=== PATIENT | male | born 1970 | race Caucasian/White ===

== ENCOUNTER 2016-11-15 13:14 | Emergency (ER) | payer SELFPAY ==
[2016-11-15 13:14] VITALS: BMI 35.4
[2016-11-15 13:23] VITALS: BP 137/88; PULSE 100; RESP 16; TEMP 98.4; O2SAT 98
[2016-11-15] MEDS ORDERED: Oxycodone/Acetaminophen 5/325 mg Tab PO STA (13:49)
--- NOTE | 2016-11-15 13:49 | C.PDOC ---
History Of Present Illness 46 yr old male presents to the ER s/p punching a desk and now complains of pain and swelling to the right hand. Patient reports he is right hand dominant. Denies neck pain, back pain, shoulder pain, weakness or numbness. 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) Current Symptoms Are (Timing): Still Present Past Medical History Reviewed: Historical Data, Nursing Documentation, Vital Signs Vital Signs: Last Vital Signs Temp 98.4 F 11/15/16 13:22 Pulse 100 H 11/15/16 13:22 Resp 16 11/15/16 13:22 BP 137/88 11/15/16 13:22 Pulse Ox 98 11/15/16 14:37 - Medical History PMH: Back Problems, Hepatitis (C) Surgical History: Back Surgery (spinal surgery) - [facility] Procedures DETOXIFICATION SERVICES FOR SUBSTANCE ABUSE TREATMENT (07/21/16) DRUG DETOXIFICATION (10/11/14) GROUP HYDROGENATION STILL OPERATOR FOR SUBSTANCE ABUSE TREATMENT, PSYCHOEDUCATION (07/21/16) GROUP HYDROGENATION STILL OPERATOR FOR SUBSTANCE ABUSE, COGNITIVE BEHAVIORAL (07/21/16) INDIV HYDROGENATION STILL OPERATOR FOR SUBSTANCE ABUSE TREATMENT, PSYCHOEDUCATION (07/21/16) INDIV HYDROGENATION STILL OPERATOR FOR SUBSTANCE ABUSE, COGNITIVE BEHAVIORAL (07/21/16) Family History: States: No Known Family Hx - Social History Hx Tobacco Use: No Hx Alcohol Use: No Hx Substance Use: Yes (heroin IV) - Immunization History Hx Tetanus Toxoid Vaccination: No Hx Influenza Vaccination: No Hx Pneumococcal Vaccination: No Review Of Systems Except As Marked, All Systems Reviewed And Found Negative. Musculoskeletal: Positive for: Hand Pain (Right hand pain and swelling ). Negative for: Neck Pain, Shoulder Pain, Back Pain Neurological: Negative for: Weakness, Numbness Physical Exam - Physical Exam Appears: Well, Non-toxic, No Acute Distress Skin: Warm, Dry, No Rash, No Ecchymosis Head: Atraumatic, Normacephalic Neck: Normal, Normal ROM, Supple Chest: Symmetrical Extremity: Other (Right Hand: Swelling and tenderness to the right hand, along the 4th and 5th metacarpal. ) Pulses: Right Radial: Normal Neurological/Psych: Oriented x3, Normal Speech, Normal Motor Gait: Steady ED Course And Treatment O2 Sat by Pulse Oximetry: 98 - Other Rad X-Ray - Right Hand X-Ray: Viewed By Me, Read By Radiologist Interpretation: PROCEDURE: Right Hand Radiographs. HISTORY: pain rt hand 4- 5th digiy s.p injury. COMPARISON: None available. FINDINGS: BONES: Displaced fracture fragment noted between the 4th and 5th metatarsals presumably originating from the lateral aspect distal 5th metacarpal. Question additional fracture involving the base of the 4th metacarpal. Remainder of the visualized osseous structures appear intact. JOINTS: Dislocation/subluxation of the 5th metacarpal is suspected. SOFT TISSUES: Soft tissue swelling. No evidence of radiopaque foreign body. OTHER FINDINGS: None. IMPRESSION: Displaced fracture fragment noted between the 4th and 5th metatarsals presumably originating from the lateral aspect distal 5th metacarpal. Question additional fracture involving the base of the 4th metacarpal. Dislocation/ subluxation of the 5th metacarpal is suspected. Soft tissue swelling. Correlate clinically and suggest further evaluation with cross-sectional imaging. Medical Decision Making Medical Decision Making: PLAN: * X-Ray - Right Hand * Percocet PO Xray shows fracture, see report Orthoglass ulnar gutter splint applied by CP and checked by me, NV intact. Patient reports mild improvement of pain. Explain Xray results and provide copy of report. Give follow up instructions with ortho/hand surgeon in few days. Disposition Counseled Patient/Family Regarding: Need For Followup, Rx Given - Disposition Referrals: Kimberly Flynn MD [Staff Provider] - Pavel Headley III, MD [Staff Provider] - [facility] [Outside] [facility] [Outside] Disposition: HOME/ ROUTINE Disposition Time: 14:21 Condition: STABLE Additional Instructions: Your Xray shows fracture of right hand. It is important that you follow up with orthopedic or hand specialist within one week for further evaluation A splint has been applied which is a temporary cast. Do not wet splint, keep out of bath, and consider plastic bag. Take pain medication as needed. Seek medical attention if develop any numbness or pins and needle sensation. Prescriptions: oxyCODONE/Acetaminophen [Percocet 5/325 mg Tab] 1 tab PO Q6 #20 tab Instructions: Hand Fracture (ED) - POA Present On Arrival: Falls Or Trauma - Clinical Impression Clinical Impression: Closed fracture of 5th metacarpal, Closed fracture of 4th metacarpal - PA / HOME THEATER SPECIALIST / Resident Statement MD/DO has reviewed & agrees with the documentation as recorded. - Scribe Statement The provider has reviewed the documentation as recorded by the Scribe Kristina Felipe All medical record entries made by the Kenanibjazmyne were at my direction and personally dictated by me. I have reviewed the chart and agree that the record accurately reflects my personal performance of the history, physical exam, medical decision making, and the department course for this patient. I have also personally directed, reviewed, and agree with the discharge instructions and disposition.
[2016-11-15] MEDS ORDERED: Oxycodone/Acetaminophen 5/325 mg Tab ONE (14:10)
--- NOTE | 2016-11-15 14:12 | RAD ---
PROCEDURE: Right Hand Radiographs. HISTORY: pain rt hand 4-5th digiy s.p injury COMPARISON: None available. FINDINGS: BONES: Displaced fracture fragment noted between the 4th and 5th metatarsals presumably originating from the lateral aspect distal 5th metacarpal. Question additional fracture involving the base of the 4th metacarpal. Remainder of the visualized osseous structures appear intact. JOINTS: Dislocation/subluxation of the 5th metacarpal is suspected. SOFT TISSUES: Soft tissue swelling. No evidence of radiopaque foreign body. OTHER FINDINGS: None. IMPRESSION: Displaced fracture fragment noted between the 4th and 5th metatarsals presumably originating from the lateral aspect distal 5th metacarpal. Question additional fracture involving the base of the 4th metacarpal. Dislocation/subluxation of the 5th metacarpal is suspected. Soft tissue swelling. Correlate clinically and suggest further evaluation with cross-sectional imaging.
== END 2016-11-15 14:41 | disposition home or self-care (01) ==
LOC: C.ER 13:14
DX: S62.304A Unspecified fracture of fourth metacarpal bone, right hand, initial encounter for closed fracture (principal); S62.306A Unspecified fracture of fifth metacarpal bone, right hand, initial encounter for closed fracture; W22.03XA Walked into furniture, initial encounter

== ENCOUNTER 2017-04-30 21:19 | Inpatient (IN) | payer MEDICARE ==
[2017-04-30 21:19] VITALS: BMI 35.4
--- NOTE | 2017-04-30 21:33 | C.PDOC ---
History Of Present Illness 47 y/o male presents to the ED ofr heroin detox. Patient denies any other physical complaints at the time. Time Seen by Provider: 04/30/17 21:31 Chief Complaint (Nursing): Substance Abuse History Per: Patient History/Exam Limitations: no limitations Onset/Duration Of Symptoms: Hrs Current Symptoms Are (Timing): Still Present Suicide/Self Injury Attempted (Context): None Modifying Factor(s): Other (Heroin) Associated Symptoms: denies: Suicidal Thoughts, Suicidal Plan Recent travel outside of the [place]: No Additional History Per: Patient Past Medical History Reviewed: Historical Data, Nursing Documentation, Vital Signs Vital Signs: Last Vital Signs Temp 97.2 F L 05/04/17 15:53 Pulse 103 H 05/04/17 15:53 Resp 18 05/04/17 15:53 BP 97/69 L 05/04/17 15:53 Pulse Ox 98 05/04/17 15:53 - Medical History PMH: Back Problems, Hepatitis (C) Denies: Diabetes, HIV, HTN, Seizures, Sexually Transmitted Disease Surgical History: Back Surgery (spinal surgery) - [facility] Procedures DETOXIFICATION SERVICES FOR SUBSTANCE ABUSE TREATMENT (07/21/16) DRUG DETOXIFICATION (10/11/14) GROUP VIDEO INTERN FOR SUBSTANCE ABUSE TREATMENT, PSYCHOEDUCATION (07/21/16) GROUP VIDEO INTERN FOR SUBSTANCE ABUSE, COGNITIVE BEHAVIORAL (07/21/16) INDIV VIDEO INTERN FOR SUBSTANCE ABUSE TREATMENT, PSYCHOEDUCATION (07/21/16) INDIV VIDEO INTERN FOR SUBSTANCE ABUSE, COGNITIVE BEHAVIORAL (07/21/16) Family History: States: Unknown Family Hx - Social History Hx Tobacco Use: No Hx Alcohol Use: Yes Hx Substance Use: Yes (heroin IV) - Immunization History Hx Tetanus Toxoid Vaccination: No Hx Influenza Vaccination: No Hx Pneumococcal Vaccination: No Review Of Systems Except As Marked, All Systems Reviewed And Found Negative. Constitutional: Negative for: Fever, Chills Cardiovascular: Negative for: Chest Pain Respiratory: Negative for: Cough, Shortness of Breath Gastrointestinal: Negative for: Nausea, Vomiting, Abdominal Pain Genitourinary: Negative for: Dysuria Psych: Negative for: Depression, Suicidal ideation Physical Exam - Physical Exam Appears: Non-toxic, No Acute Distress Skin: Warm, Dry Head: Atraumatic Eye(s): bilateral: PERRL Nose: No Epistaxis Oral Mucosa: Moist Cardiovascular: Rhythm Regular Respiratory: No Decreased Breath Sounds, No Accessory Muscle Use Gastrointestinal/Abdominal: Soft, No Tenderness, No Distention, No Guarding, No Rebound Neurological/Psych: Oriented x3 ED Course And Treatment - Laboratory Results Result Diagrams: 04/30/17 22:06 04/30/17 22:06 O2 Sat by Pulse Oximetry: 98 (On RA) Pulse Ox Interpretation: Normal Medical Decision Making Medical Decision Making: EKG - shows normal sinus rhythm at 89 BPM Disposition - Disposition Disposition: HOSPITALIZED Disposition Time: 01:28 Condition: STABLE - Clinical Impression Clinical Impression: Drug abuse - Scribe Statement The provider has reviewed the documentation as recorded by the Scribe Mal Alfaro All medical record entries made by the Scribe were at my direction and personally dictated by me. I have reviewed the chart and agree that the record accurately reflects my personal performance of the history, physical exam, medical decision making, and the department course for this patient. I have also personally directed, reviewed, and agree with the discharge instructions and disposition.
[2017-04-30 22:09] LABS: BASO # 0.1 K/uL (0.0-0.2); BASO % 0.5 % (0.0-2.0); EOS # 0.3 K/uL (0.0-0.7); EOS % 2.8 % (0.0-4.0); HEMATOCRIT 43.7 % (35.0-51.0); LYMPH # 3.5 K/uL (1.0-4.3); LYMPH % 31.9 % (20.0-40.0); MEAN CELL VOLUME 87.8 fL (80.0-94.0); MEAN CORPUSCULAR HEMOGLOBIN 28.8 pg (27.0-31.0); MEAN CORPUSCULAR HGB CONC 32.8 g/dL (33.0-37.0); MEAN PLATELET VOLUME 7.8 fL (7.2-11.7); MONO % 9.2 % (0.0-10.0); NRBC % 0.1 % (0.0-2.0); RED CELL DISTRIBUTION WIDTH 14.5 % (11.5-14.5); WHITE BLOOD COUNT 11.1 K/uL (4.8-10.8)
[2017-04-30 22:17] LABS: RBC URINE 20 /hpf (0-3); URINE BILIRUBIN NEGATIVE (NEGATIVE); URINE BLOOD NEGATIVE (NEGATIVE); URINE COLOR Amber (YELLOW); URINE GLUCOSE (UA) NORMAL (Normal); URINE KETONE TRACE mg/dL (NEGATIVE); URINE LEUKOCYTE ESTERASE NEG Leu/uL (Negative); URINE PROTEIN 1+ mg/dL (NEGATIVE); URINE UROBILINOGEN NORMAL mg/dL (0.2-1.0); WBC URINE 2 /hpf (0-5)
[2017-04-30 22:22] LABS: ALCOHOL SERUM < 10 mg/dl (0-10); ALKALINE PHOSPHATASE 67 U/L (38-126); ALT/SGPT 61 U/L (21-72); AST/SGOT 43 U/L (17-59); BILIRUBIN,TOTAL 0.8 mg/dL (0.2-1.3); BLOOD UREA NITROGEN 17 mg/dL (9-20); CARBON DIOXIDE 23 mmol/L (22-30); CHLORIDE 102 mmol/L (98-107); GFR AFRICAN-AMERICAN > 60; GLUCOSE,RANDOM 97 mg/dL (75-110); POTASSIUM 3.9 mmol/L (3.6-5.2); SODIUM 140 mmol/L (132-148); TOTAL PROTEIN 9.4 g/dL (6.3-8.3)
[2017-04-30 22:23] LABS: ALB/GLOB RATIO 1.1 (1.0-2.1)
--- NOTE | 2017-05-01 06:48 | PCM.BM ---
<Bhargav Astorga - Last Filed: 05/01/17 06:47> Treatment Plan Problems - Problems identified on initial assessmt Opiates Abuse Date Initiated: 05/01/17 Time Initiated: 02:45 Assessment reference: NA Status: Active Treatment assets and liabiliti Patient Assests: physically healthy, good support system, negotiates basic needs Patient Liabilities: substance abuse (Opiates) - Milieu Protocol Maintain good personal hygiene: daily Encourage regular showers, daily Remind patient to perform daily oral care, every shift Assist patient to perform ADL's Conduct patient checks and document Observation sheet: Q15 minutes Maintain personal safety: every shift Educate patient to report safety concerns to staff, every shift Monitor environment for contraband/sharps Medication safety: Monitor for expected outcome, potential side effects: every shift, Assess barriers to learning: every shift, Assess readiness for medication education: every shift <Sapna Fleming - Last Filed: 05/02/17 08:48> Family Contact Family involvement: Famliy/SO not involved Family contact: Patient declines to allow family contact at present - Goals for Treatment Patient goals for treatment: COMPLETE DETOX AND DISCUSS AFTERCARE OPTIONS WITH COUNSELORS. Discharge/Continuing Care - Education Needs Education Needs: Patient Medication, Patient Diagnosis/Disease Process, Patient Coping Skills, Patient Anger Management skills, Patient Placement options, Patient Community resources - Discharge Discharge Criteria: No longer exhibiting s/s of withdrawal, Reduction of target symptoms Discharge to:: Substance Abuse Rehab - Additional Comments 05/02/17 08:49 TBD - Treatment Team Participation Discussed with Family/SO: No Was Patient/Family/SO present at Treatment Team Meeting: Yes <April Ryan - Last Filed: 05/03/17 13:25> - Diagnosis (1) Opioid use disorder, severe, dependence Status: Acute Interventions: 05/03/17 13:25 * Assess 7x/week regarding severity of withdrawal * Educate regarding risks, benefits, side effects and alternatives of medications * Use Motivational Interviewing for abstinence * Use CBT for relapse prevention * Medication management for withdrawal symptoms * Encourage medication assisted treatment *
[2017-05-01] MEDS ORDERED: Buprenorphine Hydrochloride 2 mg SL ONE ×2 (11:09→12:27)
--- NOTE | 2017-05-01 15:54 | PCM.PSYCH ---
Initial Psychiatric Evaluation - Initial Psychiatric Evaluation Type of Admission: Voluntary Legal Status: Capacity Chief Complaint (in patient's own words): "I have withdrawal symptoms" History of Present Illness and Precipitating Events: This is a 47 year old male with medical hx of Hep C, back pain, admitted for heroin detox. Patient reported that his use has impacted his health in regards to his breathing, back problems and hepatits C. Patient reported that his substance use has created trust issues within his family. He also noted substance use has impacted his finances. Patient uses 10 bags of heroin per day, IV. Last use was yesterday at 2 pm. He stated that he uses 10 bags/ day. Currently he reproted withdrawal symptoms such as hot and cold flashes, yawning, goose bumps, bodyaches, running nose. He reproted that he start using heroin at the age of 21. He had 3 detox and 2 rehab. He is attending NA meeting, but he has no sponsor. Patient reported infrequent alcohol use. Patient noted that his last use was [birth year]. Patient drank a 6 pack. Patient denied use of any other substances at the time of interview. He denied current use of etoh. Patient has received detox and rehab treatment at [facility], [facility], [facility] and [facility]. Patient reported history of 3 rehabilitation admissions. Patient has been to [facility] and [facility] ([place] FHX: Patient denied any history of mental illness in the materanal or paternal family of origin. Patient denied any history of alcohol abuse or substance abuse in the maternal or paternal family of origin. MHx: Hep C and back pain Legal Hx: denied Current Medications: Active Medications Generic Name Dose Route Start Last Admin Trade Name Freq PRN Reason Stop Dose Admin Clonidine HCl 0.1 mg 05/01/17 03:00 Catapres PO Q6 PRN withdrawal symptoms Dicyclomine HCl 10 mg 05/01/17 03:31 Bentyl PO QID PRN muscle spasms Hydroxyzine HCl 25 mg 05/01/17 03:30 Atarax PO Q6 PRN Anxiety Ibuprofen 600 mg 05/01/17 03:32 Motrin Tab PO TID PRN moderate pain Trazodone HCl 50 mg 05/01/17 03:30 Desyrel PO HS PRN Insomnia denied allergies He received Subutex 2 mg and then 6 mg po once Past Psychiatric History - Past Psychiatric History Previous Treatment History: Inpatient Prior Professional Help: detox Prior Psychiatric Treatment: detox and rehab [facility]: [facility], [facility], [facility] Nature of Treatment: detox and rehab History of Abuse: denied History of Family Illness: denied Pertinent Medical Hx (Current Medical&Sleep Prob, Allergies): Allergies Allergy/AdvReac Type Severity Reaction Status Date / Time No Known Allergies Allergy Verified 11/15/16 13:22 oxyCODONE/Acetaminophen [Percocet 5/325 mg Tab] 1 tab PO Q6 #20 tab 11/15/16 Review of Systems - Review of Systems All systems: reviewed and no additional remarkable complaints except - Constitutional Constitutional: Chills, Sweats, Weakness, Malaise - EENT Eyes: As Per HPI Ears: UNREMARKABLE Nose/Mouth/Throat: Nasal Congestion - Cardiovascular Cardiovascular: UNREMARKABLE - Respiratory Respiratory: UNREMARKABLE - Gastrointestinal Gastrointestinal: UNREMARKABLE - Genitourinary Genitourinary: UNREMARKABLE - Neurological Neurological: UNREMARKABLE - Psychiatric Psychiatric: As Per HPI - Endocrine Endocrine: UNREMARKABLE Mental Status Examination - Personal Presentation Personal Presentation: Looks stated age - Affect Affect: Constricted - Motor Activity Motor Activity: Calm - Reliability in Providing Information Reliability in Providing Information: Good - Speech Speech: Organized - Mood Mood: Depressed, Anxious - Formal Thought Process Formal Thought Process: No Impairment - Hallucinations/Delusions Delusions: Other (denied) - Obsessions/Compulsions Obsessions: No Compulsions: No - Cognitive Functions Orientation: Person, Place, Situation, Time Sensorium: Alert Attention/Concentration: Attentive Abstract Thinking: Holiday Judgement: Intact, as evidence by: Good judgement, Intact, as evidence by: Insight regarding need for hospitalization Memory: Recent intact, as evidence by: Ability to recall events of the day - Risk Risk: Other (denied SI, HI, intent or plan) - Strength & Assets Inventory Strength & Assets Inventory: Family support, Spiritual affiliations, Cooperative - Limitations Limitations: Other (chronic drug abuse) DSM 5 DX - DSM 5 DSM 5 Diagnosis: Opioid dependence, with intoxication, withdrawal - Recommended/Plan of Treatment Treatment Recommendations and Plan of Treatment: Subutex detox As needed meds and vitamins Attend groups and activities CA for abstinence and CBT for relapse prevention Support and psychoeducation Consider and encourage MAT Refer to after care 33 min Projected ELOS: 4-5 days Prognosis: good with meds Discharge Plan and Discharge Criteria: On completion of opioid detox and resolution of opioid withdrawal symptoms.
[2017-05-02] MEDS: Buprenorphine Hydrochloride 2 mg SL SCH (09:45)
--- NOTE | 2017-05-02 14:46 | PCM.PYCHPN ---
Psychiatric Progress Note - Psychiatric Progress Note Patient seen today, length of contact: 18 min Patient Chief Complaint: "I am feeling very tired" Problems Identified/Issues Discussed: The pt is seen, chart reviewed, case discussed with staff. The pt is compliant with medications and reports no side-effects. Symptoms are improving but needs more time to stabilize. After care discussed, support and psychoeducation given. Medication Change: Yes (detox changes daily) Medical Record Reviewed: Yes Mental Status Examination - Cognitive Function Orientation: Person, Place, Situation, Time Memory: Intact Attention: WNL Concentration: Poor Association: WNL Fund of Knowledge: WNL - Mood Mood: Anxious - Affect Affect: Constricted - Speech Speech: Appropriate - Formal Thought Process Formal Thought Process: No Impairment - Suicidal Ideation Suicidal Ideation: No - Homicidal Ideation Homicidal Ideation: No Goal/Treatment Plan - Goal/Treatment Plan Need for Continued Stay: Discharge may exacerbated symptoms, Severe functional impairment Progress Toward Problem(s) and Goals/Treatment Plan: Subutex detox As needed medications Gabapentin for augmentation Attend groups and activities Supportive therapy and psychoeducation AR for abstinence CBT for relapse prevention Encourage MAT Refer to rehab or IOP Attend self-help groups as well Estimated Date of D/C: 05/06/17
--- NOTE | 2017-05-02 17:34 | CARD ---
APPROVED REPORT EKG Measurement Heart [id number] <Conclusion> Normal sinus rhythm Normal ECG
[2017-05-02] MEDS ORDERED: Vitamins A & D Oint UD Foilpak TOP PRN (21:31)
[2017-05-03] MEDS: Buprenorphine Hydrochloride 2 mg SL SCH (10:14)
--- NOTE | 2017-05-03 13:07 | PCM.PYCHPN ---
Psychiatric Progress Note - Psychiatric Progress Note Patient seen today, length of contact: 15 min Patient Chief Complaint: "I am OK" Problems Identified/Issues Discussed: The pt is seen, chart reviewed, case discussed with staff. Support given, CBT and MN used briefly No new symptoms reported, improving slowly and needs more time No SEs from medications, risks discussed. After care discussed - He will go to [facility] Medication Change: Yes (detox changes daily) Medical Record Reviewed: Yes Mental Status Examination - Cognitive Function Orientation: Person, Place, Situation, Time Memory: Intact Attention: WNL Concentration: Poor Association: WNL Fund of Knowledge: WNL - Mood Mood: Anxious - Affect Affect: Constricted - Speech Speech: Appropriate - Formal Thought Process Formal Thought Process: No Impairment - Suicidal Ideation Suicidal Ideation: No - Homicidal Ideation Homicidal Ideation: No Goal/Treatment Plan - Goal/Treatment Plan Need for Continued Stay: Discharge may exacerbated symptoms, Severe functional impairment Progress Toward Problem(s) and Goals/Treatment Plan: Subutex detox As needed medications Gabapentin for augmentation Attend groups and activities Supportive therapy and psychoeducation MN for abstinence CBT for relapse prevention Encourage MAT Refer to rehab or IOP Attend self-help groups as well Estimated Date of D/C: 05/05/17 If changed, why: He wants to be with the family on
[2017-05-04] MEDS: Buprenorphine Hydrochloride 2 mg SL SCH (10:47)
--- NOTE | 2017-05-04 11:34 | PCM.PYCHPN ---
Psychiatric Progress Note - Psychiatric Progress Note Patient seen today, length of contact: 15 min Patient Chief Complaint: "I feel alright" Problems Identified/Issues Discussed: The pt is seen, chart reviewed, case discussed with staff. The pt is compliant with medications and reports no side-effects. Symptoms are improving but needs more time to stabilize. After care discussed, support and psychoeducation given. Medication Change: Yes (detox changes daily) Medical Record Reviewed: Yes Mental Status Examination - Cognitive Function Orientation: Person, Place, Situation, Time Memory: Intact Attention: WNL Concentration: WNL Association: WNL Fund of Knowledge: WNL - Mood Mood: Anxious - Affect Affect: Broad - Speech Speech: Appropriate - Formal Thought Process Formal Thought Process: No Impairment - Suicidal Ideation Suicidal Ideation: No - Homicidal Ideation Homicidal Ideation: No Goal/Treatment Plan - Goal/Treatment Plan Need for Continued Stay: Discharge may exacerbated symptoms, Severe functional impairment Progress Toward Problem(s) and Goals/Treatment Plan: Subutex detox As needed medications Gabapentin for augmentation Attend groups and activities Supportive therapy and psychoeducation NV for abstinence CBT for relapse prevention Encourage MAT Refer to rehab or IOP Attend self-help groups as well Estimated Date of D/C: 05/05/17
--- NOTE | 2017-05-05 09:08 | PCM.PYCHDC ---
Mental Status Examination - Mental Status Examination Orientation: Person, Place, Situation, Time Memory: Intact Mood: Neutral Affect: Broad Speech: Appropriate Attention: WNL Concentration: WNL Association: WNL Fund of Knowledge: WNL Formal Thought Process: No Impairment Suicidal Ideation: No Current Homicidal Ideation?: No Discharge Summary - Discharge Note Psychiatric History (includes Medical, Family, Personal Hx): detox and rehab Consultations:: List each consultation separately and include: 1. Reason for request. 2. Findings. 3. Follow-up Summary of Hospital Course include:: 1. Description of specific treatment plan utilized for patients during their course of treatmen. 2. Summarize the time- course for resolution of acute symptoms and/or regressed behaviors. 3. Describe issues identified and worked on during hospitalization. 4. Describe medication utilized. 5. Describe medical problems identified and treated. 6. Reassessment of suicide risk Summary of Hospital Course: Pt will attend [facility] - Final Diagnosis (DSM 5) Condition upon Discharge: STABLE Disposition: HOME/ ROUTINE Prescriptions/Medication Reconciliation: QUEtiapine [Seroquel] 100 mg PO HS #30 tab traZODone [Desyrel] 100 mg PO HS PRN #30 tab PRN Reason: Insomnia
[2017-05-05 09:37] VITALS: BP 140/96; PULSE 69; RESP 18; TEMP 97.4; O2SAT 98
== END 2017-05-05 09:40 | disposition home or self-care (01) | DRG 895 ==
LOC: C.ER 21:19 → C.7D 05-01 01:28
PROVIDERS: ADMIT Psychiatry & Neurology Psychiatry; ATTEND Psychiatry & Neurology Psychiatry
PROC: HZ2ZZZZ Detoxification Services for Substance Abuse Treatment (ICD-10-PCS; principal; 2017-05-01)
PROC: HZ59ZZZ Individual Psychotherapy for Substance Abuse Treatment, Supportive (ICD-10-PCS; 2017-05-01)
PROC: HZ46ZZZ Group Counseling for Substance Abuse Treatment, Psychoeducation (ICD-10-PCS; 2017-05-01)
DX: F11.23 Opioid dependence with withdrawal (principal); B18.2 Chronic viral hepatitis C

== ENCOUNTER 2018-03-31 21:55 | Inpatient (IN) | payer MEDICARE ==
[2018-03-31 21:55] VITALS: BMI 35.4
--- NOTE | 2018-03-31 23:12 | C.PDOC ---
History Of Present Illness 48 year old male presents to the ED requesting detox for heroin abuse. Patient reports his last use of heroin was this afternoon. Patient was previously prescreened. Patient denies SI/HI, hallucinations, CP, SOB, trauma, injury, fall . Time Seen by Provider: 03/31/18 23:12 Chief Complaint (Nursing): Substance Abuse History Per: Patient History/Exam Limitations: intoxication Onset/Duration Of Symptoms: Hrs Current Symptoms Are (Timing): Still Present Suicide/Self Injury Attempted (Context): None Modifying Factor(s): Other (Heroin) Associated Symptoms: denies: Depression, Suicidal Thoughts, Suicidal Plan Additional History Per: Patient Past Medical History Reviewed: Historical Data, Nursing Documentation, Vital Signs Vital Signs: Last Vital Signs Temp 98.0 F 03/31/18 22:14 Pulse 101 H 03/31/18 22:14 Resp 20 03/31/18 22:14 BP 145/96 H 03/31/18 22:14 Pulse Ox 96 03/31/18 22:14 - Medical History PMH: Back Problems, Hepatitis (C) Denies: Diabetes, HIV, HTN, Seizures, Sexually Transmitted Disease Surgical History: Back Surgery (spinal surgery) - [facility] Procedures DETOXIFICATION SERVICES FOR SUBSTANCE ABUSE TREATMENT (05/01/17) DRUG DETOXIFICATION (10/11/14) GROUP POTABLE WATER TREATMENT OPERATOR FOR SUBSTANCE ABUSE TREATMENT, PSYCHOEDUCATION (05/01/17) GROUP POTABLE WATER TREATMENT OPERATOR FOR SUBSTANCE ABUSE, COGNITIVE BEHAVIORAL (07/21/16) INDIV POTABLE WATER TREATMENT OPERATOR FOR SUBSTANCE ABUSE TREATMENT, PSYCHOEDUCATION (07/21/16) INDIV POTABLE WATER TREATMENT OPERATOR FOR SUBSTANCE ABUSE, COGNITIVE BEHAVIORAL (07/21/16) INDIV PSYCHOTHERAPY FOR SUBSTANCE ABUSE TREATMENT, SUPPORT (05/01/17) Family History: States: Unknown Family Hx - Social History Hx Tobacco Use: No Hx Alcohol Use: Yes Hx Substance Use: Yes - Immunization History Hx Tetanus Toxoid Vaccination: No Hx Influenza Vaccination: No Hx Pneumococcal Vaccination: No Review Of Systems Constitutional: Negative for: Fever, Chills Cardiovascular: Negative for: Chest Pain Respiratory: Negative for: Shortness of Breath Gastrointestinal: Negative for: Nausea, Vomiting Skin: Negative for: Rash Neurological: Negative for: Weakness, Numbness Psych: Negative for: Depression, Suicidal ideation Physical Exam - Physical Exam Appears: Non-toxic, No Acute Distress Skin: Warm, Dry Head: Normacephalic Eye(s): bilateral: Normal Inspection Neck: Supple Chest: Symmetrical Cardiovascular: Rhythm Regular Respiratory: No Rales, No Rhonchi, No Wheezing Gastrointestinal/Abdominal: Soft, No Tenderness, No Guarding, No Rebound Extremity: Bilateral: Atraumatic, Normal Color And Temperature, Normal ROM Neurological/Psych: Oriented x3, Normal Speech Gait: Steady ED Course And Treatment - Laboratory Results Result Diagrams: 03/31/18 23:18 03/31/18 23:18 O2 Sat by Pulse Oximetry: 96 (ON RA) Pulse Ox Interpretation: Normal Progress Note: Plan: - Labs. - UA. - Crisis Disposition Discussed With Dr.: Martinez Carranza Comment: accepted the pt on his servi ce and took over the care at 12:49AM Doctor Will See Patient In The: Hospital Counseled Patient/Family Regarding: Studies Performed, Diagnosis - Disposition Disposition: HOSPITALIZED Disposition Time: 23:12 Condition: FAIR Forms: [facility] (Faroese) - POA Present On Arrival: Poor Glycemic Control - Clinical Impression Clinical Impression: Opiate abuse, continuous - Scribe Statement The provider has reviewed the documentation as recorded by the Scribe Mal Alfaro All medical record entries made by the Scribe were at my direction and personally dictated by me. I have reviewed the chart and agree that the record accurately reflects my personal performance of the history, physical exam, medical decision making, and the department course for this patient. I have also personally directed, reviewed, and agree with the discharge instructions and disposition. Decision To Admit - Pt Status Changed To: Hospital Disposition Of: Inpatient - Admit Certification Admit to Inpatient:: After my assessment, the patient will require hospitalization for at least two midnights. This is because of the severity of symptoms shown, intensity of services needed, and/or the medical risk in this patient being treated as an outpatient. - InPatient: Physician Admission Certification: I certify that this patient requires 2 or more midnights of care for the following reason:: After my assessment, the patient will require hospitalization for at least two midnights. This is because of the severity of symptoms shown, intensity of services needed, and/or the medical risk in this patient being treated as an outpatient. - . Bed Request Type: Detox Admitting Physician: Martinez Carranza Patient Diagnosis: Opiate abuse, continuous
[2018-03-31 23:21] LABS: BASO % 0.4 % (0.0-2.0); EOS # 0.1 K/uL (0.0-0.7); EOS % 1.7 % (0.0-4.0); HEMOGLOBIN 12.8 g/dL (12.0-18.0); LYMPH % 33.1 % (20.0-40.0); MEAN CELL VOLUME 87.1 fL (80.0-94.0); MEAN CORPUSCULAR HGB CONC 33.3 g/dL (33.0-37.0); MONO # 0.9 K/uL (0.0-0.8); MONO % 9.9 % (0.0-10.0); NEUT % 54.9 % (50.0-75.0); RBC 4.4 Mil/uL (4.40-5.90); RED CELL DISTRIBUTION WIDTH 14.5 % (11.5-14.5)
[2018-03-31 23:37] LABS: ALB/GLOB RATIO 1.1 (1.0-2.1); ALBUMIN 4.6 g/dL (3.5-5.0); ALT/SGPT 50 U/L (21-72); AST/SGOT 37 U/L (17-59); BLOOD UREA NITROGEN 23 mg/dL (9-20); CALCIUM 9.4 mg/dl (8.6-10.4); GFR NON-AFRICAN AMERICAN > 60
[2018-03-31 23:37] LABS: URINE BILIRUBIN NEGATIVE (NEGATIVE); URINE BLOOD NEGATIVE (NEGATIVE); URINE CLARITY Clear (Clear); URINE COLOR Yellow (YELLOW); URINE GLUCOSE (UA) NORMAL (Normal); URINE LEUKOCYTE ESTERASE NEG Leu/uL (Negative); URINE PROTEIN 1+ mg/dL (NEGATIVE)
[2018-03-31 23:48] LABS: BARBITURATES, UR NEGATIVE (NEGATIVE); BENZODIAZEPINES, UR NEGATIVE (NEGATIVE); PHENCYCLIDINE, UR NEGATIVE (NEGATIVE)
[2018-04-01 00:10] LABS: OPIATES, UR POSITIVE (NEGATIVE)
[2018-04-01] MEDS ORDERED: Aluminum Hydroxide/Magnesium Hydroxide Susp (30 mL) PO PRN (12:28)
--- NOTE | 2018-04-01 19:20 | PCM.PSYCH ---
Initial Psychiatric Evaluation - Initial Psychiatric Evaluation Type of Admission: Voluntary Legal Status: Capacity Chief Complaint (in patient's own words): I need help for my heroin use. History of Present Illness and Precipitating Events: Patient is a 48 years old, single, unemployed, male with no previous psychiatric history was admitted due to withdrawing from heroin. Patient started using heroin at 22 years of age, increased gradually. Currently he was using 15 bags of heroin daily, IV. Last used yesterday. Patient has history of abstinence for 18 months from 2008 to 2010. Patient relapsed in 2010. History of 6 previous detoxes and 3 rehabs. Patient denied use of any other drugs including alcohol, cocaine and cannabis Denied smoking cigarettes. Patient has history of hepatitis C. Also has history of spinal surgery in 1998. Patient was incarcerated twice for charges of drugs. Not on probation. Patient was born in [place], has GED. Patient is not working and is on disability. His last job was in 2016. He is single and has 28 years old son. He lives with his brother. His height is 5 feet 9 inches and weight is 250 pounds. Patient will speak with the social w find a follow-up care. Current Medications: Active Medications Generic Name Dose Route Start Last Admin Trade Name Freq PRN Reason Stop Dose Admin Al Hydrox/Mg Hydrox/Simethicone 30 ml 04/01/18 12:28 Maalox 30 Ml PO TID PRN Indigestion / Heartburn Clonidine HCl 0.1 mg 04/01/18 12:28 04/01/18 13:05 Catapres PO 0.1 mg Q8 PRN Administration COWS Score More or Equal to 5 Dicyclomine HCl 20 mg 04/01/18 12:31 Bentyl PO Q6 PRN Abdominal Cramps Gabapentin 400 mg 04/01/18 14:00 04/01/18 17:02 Neurontin PO 400 mg TID ALBINA Administration Ibuprofen 400 mg 04/01/18 12:30 Motrin Tab PO Q6 PRN Pain, moderate (4-7) Loperamide HCl 2 mg 04/01/18 12:28 Imodium PO Q8 PRN Diarrhea Ondansetron HCl 4 mg 04/01/18 12:28 Zofran Tab PO Q8 PRN Nausea/Vomiting Trazodone HCl 50 mg 04/01/18 22:00 Desyrel PO HS COUNT INCLUDES THE [facility] Past Psychiatric History - Past Psychiatric History Previous [facility] History of Abuse: None reported History of ETOH/Drug Use: See HPI History of Family Illness: None reported Pertinent Medical Hx (Current Medical&Sleep Prob, Allergies): Allergies Allergy/AdvReac Type Severity Reaction Status Date / Time No Known Allergies Allergy Verified 03/31/18 22:12 oxyCODONE/Acetaminophen [Percocet 5/325 mg Tab] 1 tab PO Q6 #20 tab 11/15/16 RX: QUEtiapine [Seroquel] 100 mg PO HS #30 tab 05/05/17 RX: traZODone [Desyrel] 100 mg PO HS PRN #30 tab 05/05/17 Hepatitis C Review of Systems - Psychiatric Psychiatric: As Per HPI, Depression Mental Status Examination - Personal Presentation Personal Presentation: Looks stated age - Affect Affect: Depressed - Motor Activity Motor Activity: Calm - Reliability in Providing Information Reliability in Providing Information: Fair - Speech Speech: Organized - Mood Mood: Depressed - Formal Thought Process Formal Thought Process: No Impairment - Hallucinations/Delusions Hallucinations: Other (None reported) Delusions: Other - Obsessions/Compulsions Obsessions: None Compulsions: None - Cognitive Functions Orientation: Person, Place, Situation, Time Sensorium: Alert Attention/Concentration: Attentive Abstract Thinking: [place] Estimate of Intelligence: Average Judgement: Intact, as evidence by: Insight regarding need for hospitalization Memory: Recent intact, as evidence by: Ability to recall events of the day, Remote intact, as evidenced by: Ability to recall historical events - Risk Risk: Withdrawal, Diminished functioning - Strength & Assets Inventory Strength & Assets Inventory: Family support, Cooperative - Limitations Limitations: Other (Lives with brother) DSM 5 DX - DSM 5 DSM 5 Diagnosis: Opioid use disorder severe. Opioid withdrawal - Recommended/Plan of Treatment Treatment Recommendations and Plan of Treatment: Patient education. Supportive therapy. CBT for relapse prevention. LA for abstinence. We will start Subutex taper for opiate withdrawal symptoms. Patient preferred Subutex over methadone. Other when necessary medications. Projected ELOS: 4-5 days - Smoking Cessation Smoking Cessation Initiated: No Reason for not providing: Patient doesn't smoke cigarettes
--- NOTE | 2018-04-02 16:02 | PCM.PYCHPN ---
Psychiatric Progress Note - Psychiatric Progress Note Patient seen today, length of contact: 15 minutes Patient Chief Complaint: I slept less but otherwise I'm feeling better. Problems Identified/Issues Discussed: Patient seen, chart reviewed, case discussed with the staff. Issues related to illness and treatment were discussed with the patient and staff. Tolerating treatment very well. Reported compliant with treatment with no adverse affects. Patient reported feeling better with treatment but with decreased sleep. We'll increase the dose of trazodone 200 mg at bedtime. Patient agreed. Needs more time for stabilization. Patient was calm and cooperative. Awake, alert and oriented 3. Aftercare discussed with the patient. At the time of evaluation, patient had no delusions, no auditory or visual hallucinations, no suicidal ideations or homicidal ideations. Medical Problems: Hepatitis C Diagnostic Results: Reviewed DSM 5 Symptoms Update: Some improvement with treatment Medication Change: Yes (Dose of trazodone increased to 100 mg) Medical Record Reviewed: Yes Mental Status Examination - Cognitive Function Orientation: Person, Place, Situation, Time Memory: Intact Attention: WNL Concentration: WNL Association: WNL Fund of Knowledge: [facility] Decription of patient's judgement and insights: Fair - Mood Mood: Anxious - Affect Affect: Other (Appropriate) - Speech Speech: Appropriate - Formal Thought Process Formal Thought Process: No Impairment Psychotic Thoughts and Behaviors: None - Suicidal Ideation Suicidal Ideation: No - Homicidal Ideation Homicidal Ideation: No Goal/Treatment Plan - Goal/Treatment Plan Need for Continued Stay: Remain at risks for inpatient hospitalization, Discharge may exacerbated symptoms, Severe functional impairment Progress Toward Problem(s) and Goals/Treatment Plan: Patient education. Supportive therapy. CBT for relapse prevention. PR for abstinence. Continue treatment as before. Estimated Date of D/C: 04/05/18 - Smoking Cessation Smoking Cessation Initiated: No
--- NOTE | 2018-04-03 08:42 | PCM.PYCHPN ---
Psychiatric Progress Note - Psychiatric Progress Note Patient seen today, length of contact: 15 minutes Patient Chief Complaint: "I am not well." Problems Identified/Issues Discussed: The pt is seen, chart reviewed, case discussed with staff. The pt is compliant with medications and reports no side-effects. Symptoms are improving but needs more time to stabilize. Pt attends groups and activities. Support given, psycho-education provided. After care discussed. Medication Change: Yes (detox changes daily) Medical Record Reviewed: Yes Mental Status Examination - Cognitive Function Orientation: Person, Place, Situation, Time Memory: Intact Attention: WNL Concentration: WNL Association: WNL Fund of Knowledge: WN - Mood Mood: Anxious - Affect Affect: Other (Appropriate) - Speech Speech: Appropriate - Formal Thought Process Formal Thought Process: No Impairment - Suicidal Ideation Suicidal Ideation: No - Homicidal Ideation Homicidal Ideation: No Goal/Treatment Plan - Goal/Treatment Plan Need for Continued Stay: Remain at risks for inpatient hospitalization, Discharge may exacerbated symptoms, Severe functional impairment Progress Toward Problem(s) and Goals/Treatment Plan: Continue medications Support and psychoeducation daily Attend groups and activities daily After care planning by counselors HI and CBT Refer to IOP or rehab Estimated Date of D/C: 04/05/18
--- NOTE | 2018-04-03 14:44 | PCM.BM ---
<Vero Kirby - Last Filed: 04/03/18 14:43> Treatment Plan Problems - Problems identified on initial assessmt Potential for opioid withdrawal Date Initiated: 04/03/18 Time Initiated: 08:00 Assessment reference: NA Status: Active Treatment assets and liabiliti Patient Assests: cooperative, insightful, physically healthy, good support system, negotiates basic needs Patient Liabilities: financial problems, relationship conflicts, substance abuse, medical problems - Milieu Protocol Maintain good personal hygiene: daily Encourage regular showers, daily Remind patient to perform daily oral care, daily Assist patient to perform ADL's, every shift Encourage regular showers, every shift Remind patient to perform daily oral care, every shift Assist patient to perform ADL's Maintain personal safety: daily Educate patient to report safety concerns to staff, daily Monitor environment for contraband/sharps Medication safety: Monitor for expected outcome, potential side effects: daily, every shift, Assess barriers to learning: daily, every shift, Assess readiness for medication education: daily, every shift Milieu Narrative: Continue medications Support and psychoeducation daily Attend groups and activities daily After care planning by counselors [place] and CBT Refer to IOP or rehab Discharge/Continuing Care - Treatment Team Participation Patient/Family/SO Statement: Continue medications Support and psychoeducation daily Attend groups and activities daily After care planning by counselors NH and CBT Refer to IOP or rehab <April Ryan - Last Filed: 04/05/18 08:54> - Diagnosis (1) Opioid use disorder, severe, dependence Status: Acute Interventions: 04/03/18 14:54 * Assess 7x/week regarding severity of withdrawal * Educate regarding risks, benefits, side effects and alternatives of medications * Use Motivational Interviewing for abstinence * Use CBT for relapse prevention * Medication management for withdrawal symptoms * Encourage medication assisted treatment *
--- NOTE | 2018-04-04 13:43 | PCM.PYCHPN ---
Psychiatric Progress Note - Psychiatric Progress Note Patient seen today, length of contact: 15 minutes Patient Chief Complaint: "I am nervous, have pains" Problems Identified/Issues Discussed: The pt is seen, chart reviewed, case discussed with staff. Support and psychoeducation given, CBT and DC used briefly No new symptoms reported, improving slowly and needs more time More meds needed - one more methaodne., still not well No SEs from medications, risks discussed. After care discussed Medication Change: Yes (detox changes daily) Medical Record Reviewed: Yes Mental Status Examination - Cognitive Function Orientation: Person, Place, Situation, Time Memory: Intact Attention: WNL Concentration: WNL Association: WNL Fund of Knowledge: WNL - Mood Mood: Anxious - Affect Affect: Other (Appropriate) - Speech Speech: Appropriate - Formal Thought Process Formal Thought Process: No Impairment - Suicidal Ideation Suicidal Ideation: No - Homicidal Ideation Homicidal Ideation: No Goal/Treatment Plan - Goal/Treatment Plan Need for Continued Stay: Remain at risks for inpatient hospitalization, Discharge may exacerbated symptoms, Severe functional impairment Progress Toward Problem(s) and Goals/Treatment Plan: Continue medications Support and psychoeducation daily Attend groups and activities daily After care planning by counselors DC and CBT Refer to IOP or rehab Estimated Date of D/C: 04/05/18
[2018-04-04 20:31] VITALS: O2SAT 97
--- NOTE | 2018-04-05 08:53 | PCM.PYCHDC ---
Mental Status Examination - Mental Status Examination Orientation: Person, Place, Situation, Time Memory: Intact Mood: Anxious Affect: Constricted Speech: Appropriate Attention: WNL Concentration: Poor Association: WNL Fund of Knowledge: WNL Formal Thought Process: No Impairment Suicidal Ideation: No Current Homicidal Ideation?: No Discharge Summary - Discharge Note Reason for Hospitalization: Opioid detox Consultations:: List each consultation separately and include: 1. Reason for request. 2. Findings. 3. Follow-up Summary of Hospital Course include:: 1. Description of specific treatment plan utilized for patients during their course of treatmen. 2. Summarize the time- course for resolution of acute symptoms and/or regressed behaviors. 3. Describe issues identified and worked on during hospitalization. 4. Describe medication utilized. 5. Describe medical problems identified and treated. 6. Reassessment of suicide risk Summary of Hospital Course: The pt was admitted and started on treatment with psychotherapy, support, psychoeducation and medications. MO and CBT used. The pt attended groups and activities, as well as milieu therapy. All the risks and benefits of medications are discussed and the patient understood and agreed. The pt improved with the treatments provided. After care discussed with the patient. He [facility] to [facility] in . - Final Diagnosis (DSM 5) Condition upon Discharge: IMPROVED DSM 5: Opioid use disorder severe. Opioid withdrawal Disposition: HOME/ ROUTINE Follow-up Treatment Plan: Continue below medications after discharge. Follow after care plan as discussed. Use relapse prevention skills Return to ER or call 911 if suicidal, homicidal or symptoms relapse. Stay away from stress, alcohol and drugs. See primary doctor regularly and get labs. Prescriptions/Medication Reconciliation: Gabapentin [Neurontin] 400 mg PO TID #90 cap hydrOXYzine HCl [Atarax] 25 mg PO Q6 PRN #30 tab PRN Reason: Anxiety traZODone [Desyrel] 100 mg PO HS #30 tab
[2018-04-05 11:00] VITALS: BP 137/82; PULSE 77; TEMP 97.8
[2018-04-05 11:29] VITALS: RESP 19
== END 2018-04-05 09:30 | disposition home or self-care (01) | DRG 897 ==
LOC: C.ER 21:55 → C.7D 04-01 00:47
PROC: GZ56ZZZ Individual Psychotherapy, Supportive (ICD-10-PCS; principal; 2018-04-01)
DX: F11.23 Opioid dependence with withdrawal (principal); B19.20 Unspecified viral hepatitis C without hepatic coma